=== PATIENT | male | born 1975 | race Caucasian/White ===

== ENCOUNTER 2020-09-05 18:29 | Emergency (ER) | payer BC ==
[~2020-09-05 18:29] MED LIST: AUGMENTIN 875-1 EACH PO; BACTRIM DS TAB1 EACH PO; CYCLOBENZAPRINE10 MG PO; DOXYCYCLINE HY100 MG PO; IBUPROFEN600 MG PO; NAPROSYN500 MG PO; PREDNISONE 20 M20 MG PO; TORADOL 10 MG T10 MG PO
[2020-09-05] MEDS ORDERED: ENDOCET 5-3251 EACH PO (19:13)
[2020-09-05] MEDS ORDERED: IBUPROFEN800 MG PO (19:14)
== END 2020-09-05 19:58 | disposition home or self-care (01) ==
LOC: ER1 18:29
DX: S39.012A Strain of muscle, fascia and tendon of lower back, initial encounter (principal); M54.16 Radiculopathy, lumbar region; X50.1XXA Overexertion from prolonged static or awkward postures, initial encounter; Y92.009 Unspecified place in unspecified non-institutional (private) residence as the place of occurrence of the external cause
CPT/HCPCS: 99283; J1885

== ENCOUNTER 2020-12-27 07:15 | Emergency (ER) | payer OTHER ==
[~2020-12-27 07:15] MED LIST changes: +ENDOCET 5-3251 EACH PO; +IBUPROFEN800 MG PO
[2020-12-27] MEDS ORDERED: DOXYCYCLINE HY100 MG PO (08:34)
[2020-12-27] MEDS ORDERED: IBUPROFEN600 MG PO (08:34)
== END 2020-12-27 09:15 | disposition home or self-care (01) ==
LOC: ER1 07:15
DX: S50.851A Superficial foreign body of right forearm, initial encounter (principal); E78.5 Hyperlipidemia, unspecified; F17.210 Nicotine dependence, cigarettes, uncomplicated; Z23 Encounter for immunization; W22.8XXA Striking against or struck by other objects, initial encounter
CPT/HCPCS: 10120; 73090; 90471; 90714; 99283

== ENCOUNTER → 2021-01-04 | Outpatient (CLI) | payer OTHER ==
[~2021-01-04] MED LIST changes: +CYCLOBENZAPRINE5 MG PO
== END ==
LOC: CT 11:00
DX: S59.901D Unspecified injury of right elbow, subsequent encounter (principal); R93.7 Abnormal findings on diagnostic imaging of other parts of musculoskeletal system
CPT/HCPCS: 73200

== ENCOUNTER 2021-01-30 06:22 | Emergency (ER) | payer OTHER ==
[~2021-01-30 06:22] MED LIST changes: -CYCLOBENZAPRINE5 MG PO
[2021-01-30] MEDS ORDERED: IBUPROFEN600 MG PO (07:09)
[2021-01-30] MEDS ORDERED: CYCLOBENZAPRINE5 MG PO (07:09)
== END 2021-01-30 07:20 | disposition home or self-care (01) ==
LOC: ER1 06:22
DX: R07.81 Pleurodynia (principal); E78.5 Hyperlipidemia, unspecified; Z88.1 Allergy status to other antibiotic agents
CPT/HCPCS: 71111; 93005; 96372; 99284; J1885

== ENCOUNTER 2021-07-13 00:58 | Emergency (ER) | payer SELFPAY ==
[~2021-07-13 00:58] MED LIST changes: +CYCLOBENZAPRINE5 MG PO
[2021-07-13 01:24] LABS: HEMOGLOBIN 14.3 gm/dl (14.0-17.5); RED BLOOD COUNT 4.61 M/UL (4.20-5.50)
[2021-07-13 01:42] LABS: BUN/CREATININE RATIO 14 (0-10)
== END 2021-07-13 05:25 | disposition home or self-care (01) ==
LOC: ER1 00:58
PROVIDERS: Emergency Medicine
DX: R07.9 Chest pain, unspecified (principal); R42 Dizziness and giddiness; F17.210 Nicotine dependence, cigarettes, uncomplicated; E78.5 Hyperlipidemia, unspecified; Z88.1 Allergy status to other antibiotic agents
CPT/HCPCS: 36415; 71045; 80053; 82550; 82553; 83874; 84484; 85025; 93005; 99285

== ENCOUNTER 2022-02-15 02:40 | Emergency (ER) | payer BC ==
[2022-02-15] MEDS ORDERED: CLEOCIN HCL150 MG PO (04:36)
== END 2022-02-15 04:55 | disposition home or self-care (01) ==
LOC: ER1 02:40
DX: L03.116 Cellulitis of left lower limb (principal); F17.210 Nicotine dependence, cigarettes, uncomplicated
CPT/HCPCS: 99283

== ENCOUNTER → 2022-02-19 | Outpatient (CLI) | payer OTHER ==
[~2022-02-19] MED LIST changes: +CLEOCIN HCL150 MG PO
== END ==
LOC: EMI 16:05
DX: M54.2 Cervicalgia (principal); M47.812 Spondylosis without myelopathy or radiculopathy, cervical region
CPT/HCPCS: 72141